=== PATIENT | female | born 1995 | race Caucasian/White ===

== ENCOUNTER → 2016-11-27 | Outpatient (CLI) | payer BC ==
[2016-11-28 12:48] LABS: NEISSERIA GONORRHEA DNA URINE Negative (Negative)
[2016-11-28 16:54] LABS: CHLAMYDIA DNA URINE Negative (Negative)
== END ==
LOC: LAB 13:19
PROVIDERS: ATTEND Family Medicine
DX: N89.8 Other specified noninflammatory disorders of vagina (principal)
CPT/HCPCS: 36415; 87491; 87591

== ENCOUNTER → 2017-04-14 | Outpatient (CLI) | payer BC ==
--- NOTE | 2017-04-14 16:34 | Diagnostic Imaging Report ---
INDICATION: Cough and shortness of breath. COMPARISON: None. FINDINGS: Two 2 views of the chest are obtained. Heart size is normal. The pulmonary vessels appear unremarkable. There is no pneumothorax, mediastinal widening or pleural fluid demonstrated. The lungs are clear. The osseous structures appear unremarkable. IMPRESSION: Negative chest. Dictated by: Dictated on workstation # [id number]
== END ==
LOC: RAD 16:09
PROVIDERS: ATTEND Nurse Practitioner Family
DX: R05 Cough (principal); R06.02 Shortness of breath
CPT/HCPCS: 71020

== ENCOUNTER 2018-03-21 21:12 | Emergency (ER) | payer BC ==
[~2018-03-21] VITALS: Ht 160 cm; Wt 56.7 kg
--- NOTE | 2018-03-21 22:06 | ED Upper Extremity ---
General Stated Complaint: LEFT HAND FINGERNAIL INJURY Source: patient Exam Limitations: no limitations History of Present Illness Date Seen by Provider: Mar 21, 2018 Time Seen by Provider: 22:00 Initial Comments Patient is a 23-year-old female who presents to the emergency room with complaints of catching her left fourth finger and pulling the nail back. She has approximately [address]. Her nail bed remains intact. No bleeding noted. Onset: just prior to arrival Severity: mild Pain/Injury Location: left 4th finger Modifying Factors: Improves With Movement Allergies and Home Medications Patient Home Medication List Home Medication List Reviewed: Yes Constitutional: see HPI; No chills, No fever Skin: see HPI, change in hair/nails All Other Systems Reviewed Negative Unless Noted: Yes Past Tzkpcjf-Nunsgo-Sptcru Hx Past Med/Social Hx: Reviewed Nursing Past Med/Soc Hx Family Medical History Reviewed Nursing Family Hx Physical Exam Vital Signs Capillary Refill : Height, Weight, BMI Height: '" Weight: lbs. oz. kg; BMI Method: General Appearance: WD/WN, no apparent distress Hand: Left, nail injury (left fourth finger nail injury.) Departure Impression Primary Impression: Injury to fingernail of left hand Disposition: HOME, SELF-CARE Condition: Stable/Unchanged Departure-Patient Inst. Decision time for Depature: 22:05 Referrals: RENAE MERRITT MD (PCP/Family) Primary Care Physician Patient Instructions: Common Finger Injuries Add. Discharge Instructions: Wear the splint/guard as needed for comfort. You may take ibuprofen and Tylenol as directed by the bottle for pain. Watch for signs of infection. Return back to the emergency room for any worsening symptoms or concerns as needed. Follow up with your doctor within 1 week for recheck. DAVID ALBERTS Mar 21, 2018 22:06
[2018-03-21 23:32] VITALS: BP 110/70
== END 2018-03-21 23:35 | disposition home or self-care (01) ==
LOC: EDUNIT# 21:12 → ER 21:13
DX: S69.92XA Unspecified injury of left wrist, hand and finger(s), initial encounter (principal); X50.0XXA Overexertion from strenuous movement or load, initial encounter
CPT/HCPCS: 99282

== ENCOUNTER 2019-02-19 01:07 | Emergency (ER) | payer BC ==
[~2019-02-19] VITALS: Ht 165.1 cm; Wt 54.4 kg
[2019-02-19] MEDS ORDERED: LACTATED RINGERS 1,000 ML IV ONE ×2 (01:44→01:46)
[2019-02-19] MEDS ORDERED: LORazepam INJ 2 MG/ML (ATIVAN) VIAL ONE (01:45)
[2019-02-19] MEDS ORDERED: ONDANSETRON 4 MG/2 ML (SDV) Z0FRAN IVP ONE ×2 (02:00→03:30)
[2019-02-19] MEDS ORDERED: LORazepam INJ 2 MG/ML (ATIVAN) VIAL IVP ONE (02:00)
[2019-02-19 02:16] LABS: BASOPHILS % (AUTO) 0 % (0-10); EOSINOPHILS % (AUTO) 0 % (0-10); HEMATOCRIT 42 % (35-52); HEMOGLOBIN 15.1 G/DL (11.5-16.0); LYMPHOCYTES # (AUTO) 2.2 X 10^3 (1.0-4.0); LYMPHOCYTES % (AUTO) 16 % (12-44); MEAN CORPUSCULAR HEMOGLOBIN 31 PG (25-34); MEAN CORPUSCULAR HGB CONC 36 G/DL (32-36); MEAN CORPUSCULAR VOLUME 86 FL (80-99); MEAN PLATELET VOLUME 11.1 FL (7.4-10.4); MONOCYTES % (AUTO) 8 % (0-12); NEUTROPHILS # (AUTO) 10.4 X 10^3 (1.8-7.8); NEUTROPHILS % (AUTO) 76 % (42-75); PLATELET COUNT 393 10^3/uL (130-400); RED CELL DISTRIBUTION WIDTH 11.9 % (10.0-14.5); WHITE BLOOD COUNT 13.6 10^3/uL (4.3-11.0)
[2019-02-19 02:28] LABS: PROTHROMBIN TIME PATIENT 13.8 SEC (12.2-14.7)
[2019-02-19 02:29] LABS: BILIRUBIN,URINE NEGATIVE (NEGATIVE); CLARITY,URINE CLEAR; COLOR,URINE YELLOW; GLUCOSE, URINE (UA) NEGATIVE (NEGATIVE); KETONES,URINE 2+ (NEGATIVE); LEUKOCYTE ESTERASE ,URINE 1+ (NEGATIVE); NITRITE,URINE NEGATIVE (NEGATIVE); PH,URINE 7 (5-9); PROTEIN,URINE NEGATIVE (NEGATIVE); UROBILINOGEN,URINE NORMAL (NORMAL)
[2019-02-19 02:37] LABS: ALANINE AMINOTRANSFERASE 10 U/L (0-55); ALKALINE PHOSPHATASE 69 U/L (40-136); BUN/CREATININE RATIO 9; CALCIUM 10.4 MG/DL (8.5-10.1); CARBON DIOXIDE 16 MMOL/L (21-32); CHLORIDE 107 MMOL/L (98-107); CREATININE SERUM 0.87 MG/DL (0.60-1.30); GFR ESTIMATED > 60; GLUCOSE 101 MG/DL (70-105); MAGNESIUM 2.4 MG/DL (1.8-2.4); POTASSIUM 2.7 MMOL/L (3.6-5.0); SODIUM 140 MMOL/L (135-145); TOTAL PROTEIN 7.1 GM/DL (6.4-8.2)
--- NOTE | 2019-02-19 02:40 | NUR ---
NICOLE BLANDON (ADJUNCT LECTURER)-PT DID NOT WANT TO PUT NECKLACE BACK ON, BUT WANTED TO HOLD IN HER HAND AFTER pCXR.
[2019-02-19 02:41] LABS: AMPHETAMINE SCREEN, URINE NEGATIVE (NEGATIVE); BACTERIA,URINE TRACE /HPF; BARBITURATE SCREEN URINE NEGATIVE (NEGATIVE); BENZODIAZEPINES SCREEN URINE NEGATIVE (NEGATIVE); CANNABINOID SCREEN, URINE POSITIVE (NEGATIVE); COCAINE SCREEN URINE NEGATIVE (NEGATIVE); METHADONE STAT NEGATIVE (NEGATIVE); METHAMPHETAMINE SCREEN URINE S NEGATIVE (NEGATIVE); OPIATE SCREEN URINE NEGATIVE (NEGATIVE); OXYCODONE STAT NEGATIVE (NEGATIVE); PROPOXYPHENE STAT NEGATIVE (NEGATIVE); SQUAMOUS EPITHELIAL CELL,UR 0-2 /HPF; TRICYCLIC ANTIDEPRESSANTS SCRE NEGATIVE (NEGATIVE); WBC,URINE 0-2 /HPF
[2019-02-19] MEDS ORDERED: NS IV 500 ML 500 ML IV ONE ×2 (02:52→03:45)
[2019-02-19] MEDS ORDERED: POTASSIUM CL 10MEQ/50ML IVPB 50 ML IV ONE ×2 (03:00)
[2019-02-19] MEDS ORDERED: KCL 10 MEQ TAB (MICRO K) PO ONE (03:15)
--- NOTE | 2019-02-19 04:01 | ED General ---
General Chief Complaint: Respiratory Problems Stated Complaint: SOB,CP,CLAMMY Nursing Triage Note: AMBULATORY TO ED ROOM 3 WITH S/O BY HER SIDE, S/O STATES, "WE'VE BEENING TRYING TO FIND A PULSE ON HER AND CAN'T". PT STATES SHES BEEN SOA FOR 3 DAYS INTERMITTENTLY, ALSO WITH NAUSEA AND DIARRHEA. STATES SHE WAS SEEN AT [facility] AND TOLD HER SHE WAS FINE AND TO "LEAVE HER BOYFRIEND, BUT KEEP THE DOG". PT NOTED TO BE HYPERVENTILATING AND VERY ANXIOUS DURING TRIAGE. S/O PRESENTED TO ED REGISTRATION DESK REPEATEDLY PRIOR TO TRIAGE STATING SHE WASN'T BREATHING AND REPEATEDLY CHECKING HEART RATE. PT WAS SEEN TALKING AND WALKING AROUND IN WAITING ROOM BY DEBEADER. Nursing Sepsis Screen: No Definite Risk Source of Information: Patient Exam Limitations: No Limitations History of Present Illness Date Seen by Provider: Feb 19, 2019 Time Seen by Provider: 01:40 Initial Comments This 23-year-old woman presents to the emergency room crying and hysterical. She is hyperventilating. She complains of nausea and increased bowel movements 3 days. She is having trouble keeping in food and fluids. She has been feeling very anxious since midnight. She admits to using marijuana and draping. She feels like she cannot breathe. She is satting at 100 percent on room air. Allergies and Home Medications Allergies Coded Allergies: oxcarbazepine (Unverified Adverse Reaction, Unknown, 02/19/19) Home Medications Ondansetron 4 Mg Tab.rapdis, 4 MG SL Q4H PRN for NAUSEA/VOMITING Prescribed by: SATHISH GALEANO on 02/19/19 0404 Patient Home Medication List Home Medication List Reviewed: Yes Review of Systems Review of Systems Constitutional: no symptoms reported EENTM: no symptoms reported Respiratory: see HPI Cardiovascular: no symptoms reported Gastrointestinal: see HPI Genitourinary: no symptoms reported : No Musculoskeletal: no symptoms reported Skin: no symptoms reported Psychiatric/Neurological: See HPI Hematologic/Lymphatic: No Symptoms Reported Immunological/Allergic: no symptoms reported Past Fkzxojy-Esukzn-Isiekx Hx Past Med/Social Hx: Reviewed Nursing Past Med/Soc Hx Patient Social History Alcohol Use: Denies Use Recreational Drug Use: Yes Drug of Choice: MARIJUANA DAILY Type Used: Electronic/Vapor Recent Foreign Travel: No Contact w/Someone Who Travel: No Recent Infectious Disease Expo: No Recent Hopitalizations: No Physical Abuse: No Sexual Abuse: No Mistreated: No Fear: No Seasonal Allergies Seasonal Allergies: No Past Medical History Surgeries: Yes (HERNIA) Appendectomy Respiratory: No Cardiac: No Neurological: No Genitourinary: No Gastrointestinal: Yes (GASTROPARESIS) Musculoskeletal: No Endocrine: No HEENT: No Cancer: No Psychosocial: No Blood Disorders: No Physical Exam Vital Signs Vital Signs - First Documented 02/19/19 02/19/19 01:40 04:20 Temp 98.9 Pulse 84 Resp 54 B/P (MAP) 112/70 (84) Pulse Ox 100 Capillary Refill : Less Than 3 Seconds Height, Weight, BMI Height: 5'5.00" Weight: 120lbs. oz. 54.229374fn; BMI Method:Stated General Appearance: WD/WN, Anxious, Moderate Distress HEENT: PERRL/EOMI, TMs Normal, Normal ENT Inspection, Pharynx Normal Neck: Normal Inspection Respiratory: Lungs Clear, Normal Breath Sounds, No Accessory Muscle Use, No Respiratory Distress, Other (Relating) Cardiovascular: Regular Rate, Rhythm, No Edema, No Murmur Gastrointestinal: Normal Bowel Sounds, Non Tender, Soft Extremity: Normal Inspection, No Pedal Edema Neurologic/Psychiatric: Alert, Oriented x3, No Motor/Sensory Deficits, mainspring winder and oiler II- XII Norm as Tested, Other (Very anxious, hyperventilating, tearful) Skin: Normal Color, Warm/Dry Progress/Results/Core Measures Suspected Sepsis Recent Fever Within 48 Hours: No Infection Criteria Present: None New/Unexplained Altered Menta: No Sepsis Screen: No Definite Risk SIRS Temperature:98.9 Pulse: 84 Respiratory Rate: 54 Blood Pressure 112 /70 Mean: 84 Results/Orders Lab Results My Orders Medications Given in ED Vital Signs/I&O Capillary Refill : Less Than 3 Seconds Blood Pressure Mean: 84 Progress Note : Progress Note Patient was given Ativan which resolved her hyperventilation. She was hydrated with a liter of LR and treated with Zofran. She was found to be significantly hypokalemic. Potassium was replaced, first IV route and then orally. Patient felt much better and was dismissed home with reassurance. ECG Initial ECG Impression Date: Feb 19, 2019 Initial ECG Impression Time: 02:10 Initial ECG Rate: 54 Initial ECG Rhythm: Normal Sinus Initial ECG Intervals: Normal Initial ECG Impression: Normal Comment Normal sinus rhythm with no ST elevation or depression. No abnormal intervals or axis deviation. Diagnostic Imaging Diagonstic Imaging: Xray Plain Films/CT/US/NM/MRI: chest Comments Chest x-ray viewed by me and report not yet available. No acute abnormalities appreciated. Departure Impression Primary Impression: Nausea vomiting and diarrhea Additional Impressions: Hypokalemia Hyperventilation Disposition: 01 HOME, SELF-CARE Condition: Improved Departure-Patient Inst. Referrals: [facility] (PCP/Family) Primary Care Physician Patient Instructions: Hyperventilation, Hypokalemia (DC) Add. Discharge Instructions: Start with a clear liquid diet and drink plenty of clear liquids. Gradually advance your diet with small quantities of bland food as tolerated. Avoid milk products for at least 48 hours after your symptoms resolve. Use Zofran (ondansetron) as prescribed for nausea and vomiting. Return to care if you have worsening symptoms. All discharge instructions reviewed with patient and/or family. Voiced understanding. Scripts Ondansetron (Ondansetron Odt) 4 Mg Tab.rapdis 4 MG SL Q4H PRN for NAUSEA/VOMITING, #10 TAB Prov: SATHISH DAWSON MD 02/19/19 SATHISH DAWSON MD Feb 19, 2019 04:01
[2019-02-19] MEDS ORDERED: ONDA4TAB11 SL (04:04)
[2019-02-19 04:20] VITALS: BP 99/59
--- NOTE | 2019-02-19 07:26 | Diagnostic Imaging Report ---
INDICATION: Shortness of breath, cough and congestion. Comparison made with prior examination 04/14/2017. FINDINGS: The heart size, mediastinal configuration, and pulmonary vascularity are within normal limits. There is no pleural effusion, pneumothorax, or pneumonia. The osseous structures are unremarkable. IMPRESSION: No acute cardiopulmonary abnormality. Dictated by: Dictated on workstation # [id number]
== END 2019-02-19 04:21 | disposition home or self-care (01) ==
LOC: EDUNIT# 01:07 → ER 01:09
DX: E87.6 Hypokalemia (principal); R06.4 Hyperventilation; R11.2 Nausea with vomiting, unspecified; R19.7 Diarrhea, unspecified; K31.84 Gastroparesis; F12.10 Cannabis abuse, uncomplicated; Z90.49 Acquired absence of other specified parts of digestive tract; Z88.8 Allergy status to other drugs, medicaments and biological substances; Z98.890 Other specified postprocedural states
CPT/HCPCS: 36415; 71045; 80053; 80306; 80320; 81000; 83735; 83874; 84484; 84703; 85025; 85610; 85730; 93005; 93041; 96361; 96365; 96375

== ENCOUNTER 2020-09-22 11:41 | Emergency (ER) | payer BC, OTHER ==
[~2020-09-22] VITALS: Ht 165.1 cm; Wt 54.5 kg
[~2020-09-22 11:41] MED LIST: ONDA4TAB11 SL
[2020-09-22] MEDS ORDERED: ONDANSETRON 4 MG/2 ML (SDV) Z0FRAN IVP ONE (12:00)
[2020-09-22] MEDS ORDERED: FAMOTIDINE 20MG/2ML IV (PEPCID) IVP ONE (12:00)
[2020-09-22] MEDS ORDERED: LACTATED RINGERS 1,000 ML IV ONE (12:00)
--- NOTE | 2020-09-22 12:16 | ED Abdominal Pain ---
General Chief Complaint: Abdominal/GI Problems Stated Complaint: VOMITING;NAUSEA Source of Information: Patient Exam Limitations: No Limitations (MARCELL SAMPSON) History of Present Illness Date Seen by Provider: Sep 22, 2020 Time Seen by Provider: 12:06 Initial Comments Laura is a 25 y/o female who accompanied by her boyfriend that present with nausea and vomiting since last night. She was out drinking last night and remembers having at least 6-10 mixed drinks in addition to beer. She has associated diarrhea and abdominal pain. Nothing has helped make it better and drinking fluids has made it worse. She denies blood in vomit or stool. Denies knowing anyone else with similar symptoms. LMP was a couple of weeks ago, patient has been sexually active since. Patient does have vaginal discharge but cannot describe it. Denies F/C, Chest pain, SOB, dysuria and constipation at this time. PMH includes Anxiety. She was not able to take medications today. Denies PMH of pathology. Timing/Duration: 1 Day Severity/Quality: Severe Location: Generalized Abdomen Radiation: RLQ, LLQ Activities at Onset: Other (alcohol use ) Associated Symptoms: Fatigue, Nausea/Vomiting, Weakness (MARCELL SAMPSON) Allergies and Home Medications Allergies Coded Allergies: oxcarbazepine (Unverified Adverse Reaction, Unknown, 02/19/19) Home Medications Ondansetron 4 Mg Tab.rapdis, 4 MG SL Q4H PRN for NAUSEA/VOMITING Prescribed by: SATHISH GALEANO on 02/19/19 0404 Ondansetron 4 Mg Tab.rapdis, 4 MG SL Q4H PRN for NAUSEA/VOMITING Prescribed by: SATHISH GALEANO on 09/22/20 1442 Patient Home Medication List Home Medication List Reviewed: Yes (SATHISH DAWSON MD) Review of Systems Review of Systems Constitutional: see HPI EENTM: No Symptoms Reported Respiratory: No Symptoms Reported Cardiovascular: No Symptoms Reported Gastrointestinal: Diarrhea, Nausea; Denies Rectal Bleeding; Vomiting Genitourinary: No Symptoms Reported Musculoskeletal: no symptoms reported Skin: no symptoms reported Psychiatric/Neurological: Anxiety Endocrine: No Symptoms Reported Hematologic/Lymphatic: No Symptoms Reported (MARCELL SAMPSON) Past Wruvrtt-Ynwyds-Ogwqjr Hx Patient Social History Drug of Choice: MARIJUANA DAILY Type Used: Electronic/Vapor Recent Hopitalizations: No (CAMILLA,MARCELL MED STUDEN) Seasonal Allergies Seasonal Allergies: No (CAMILLA,MARCELL MED STUDEN) Past Medical History Surgeries: Yes (HERNIA) Appendectomy Respiratory: No Cardiac: No Neurological: No Genitourinary: No Gastrointestinal: Yes (GASTROPARESIS) Musculoskeletal: No Endocrine: No HEENT: No Cancer: No Psychosocial: No Blood Disorders: No (CAMILLA,MARCELL MED STUDEN) Physical Exam Vital Signs Vital Signs - First Documented 09/22/20 11:47 Temp 36.3 Pulse 87 Resp 18 B/P (MAP) 113/84 (94) Pulse Ox 100 O2 Delivery Room Air (SATHISH DAWSON MD) Vital Signs Capillary Refill : (CAMILLA,MARCELL MED STUDEN) Height/Weight/BMI Height: 5'5.00" Weight: 120lbs. oz. 54.722449ut; BMI Method:Stated General Appearance: severe distress, thin HEENT: PERRL/EOMI Neck: non-tender, full range of motion Respiratory: chest non-tender, lungs clear, no respiratory distress, no accessory muscle use Cardiovascular: normal peripheral pulses, regular rate, rhythm, no edema Peripheral Pulses: 2+ Radial Pulses (R), 2+ Radial Pulses (L) Gastrointestinal: tenderness (Diffuse with radiation LLQ and RLQ) Extremities: no pedal edema, no calf tenderness Neurologic/Psychiatric: alert, normal mood/affect, oriented x 3 Skin: normal color (CAMILLA,MARCELL MED STUDEN) Progress/Results/Core Measures Results/Orders Lab Results Laboratory Tests Test 09/22/20 12:18 Range/Units White Blood Count 17.3 H 4.3-11.0 10^3/uL Red Blood Count 4.76 3.80-5.11 10^6/uL Hemoglobin 14.9 11.5-16.0 g/dL Hematocrit 43 35-52 % Mean Corpuscular Volume 89 80-99 fL Mean Corpuscular Hemoglobin 31 25-34 pg Mean Corpuscular Hemoglobin Concent 35 32-36 g/dL Red Cell Distribution Width 11.7 10.0-14.5 % Platelet Count 372 130-400 10^3/uL Mean Platelet Volume 10.9 9.0-12.2 fL Immature Granulocyte % (Auto) 0 % Neutrophils (%) (Auto) 90 H 42-75 % Lymphocytes (%) (Auto) 6 L 12-44 % Monocytes (%) (Auto) 3 0-12 % Eosinophils (%) (Auto) 0 0-10 % Basophils (%) (Auto) 0 0-10 % Neutrophils # (Auto) 15.6 H 1.8-7.8 10^3/uL Lymphocytes # (Auto) 1.0 1.0-4.0 10^3/uL Monocytes # (Auto) 0.6 0.0-1.0 10^3/uL Eosinophils # (Auto) 0.0 0.0-0.3 10^3/uL Basophils # (Auto) 0.0 0.0-0.1 10^3/uL Immature Granulocyte # (Auto) 0.1 0.0-0.1 10^3/uL Neutrophils % (Manual) 91 % Lymphocytes % (Manual) 9 % Blood Morphology Comment NORMAL Sodium Level 141 135-145 MMOL/L Potassium Level 4.1 3.6-5.0 MMOL/L Chloride Level 106 98-107 MMOL/L Carbon Dioxide Level 18 L 21-32 MMOL/L Anion Gap 17 H 5-14 MMOL/L Blood Urea Nitrogen 16 7-18 MG/DL Creatinine 0.82 0.60-1.30 MG/DL Estimat Glomerular Filtration Rate > 60 BUN/Creatinine Ratio 20 Glucose Level 120 H 70-105 MG/DL Calcium Level 9.6 8.5-10.1 MG/DL Corrected Calcium 8.5-10.1 MG/DL Total Bilirubin 0.6 0.1-1.0 MG/DL Aspartate Amino Transf (AST/SGOT) 28 5-34 U/L Alanine Aminotransferase (ALT/SGPT) 36 0-55 U/L Alkaline Phosphatase 56 40-136 U/L C-Reactive Protein High Sensitivity 0.09 0.00-0.50 MG/DL Total Protein 7.4 6.4-8.2 GM/DL Albumin 4.9 H 3.2-4.5 GM/DL Lipase 9 8-78 U/L Serum Test, Qualitative NEGATIVE NEGATIVE (SATHISH DAWSON MD) My Orders Orders - SATHISH DAWSON MD Ed Iv/Invasive Line Start (09/22/20 11:51) Famotidine Injection (Pepcid Injection) (09/22/20 12:00) Ondansetron Injection (Zofran Injectio (09/22/20 12:00) Cbc With Automated Diff (09/22/20 11:53) Comprehensive Metabolic Panel (09/22/20 11:53) Hcg,Qualitative Serum (09/22/20 11:53) Lactated Ringers (Lr 1000 Ml Iv Solution (09/22/20 12:00) Lipase (09/22/20 12:02) Promethazine Injection (Phenergan Injec (09/22/20 12:30) Manual Differential (09/22/20 12:18) Ua Culture If Indicated (09/22/20 12:42) Hs C Reactive Protein (09/22/20 12:42) Ns Iv 500 Ml (Sodium Chloride 0.9%) (09/22/20 13:45) (SATHISH DAWSON MD) Medications Given in ED Current Medications Medications Dose Ordered Sig/Brandon Route Start Time Stop Time Status Last Admin Dose Admin Famotidine 20 mg ONCE ONCE IVP 09/22/20 12:00 09/22/20 12:01 DC 09/22/20 12:11 20 MG Lactated Ringer's 1,000 ml @ 0 mls/hr Q0M ONCE IV 09/22/20 12:00 09/22/20 12:01 DC 09/22/20 12:12 1,000 MLS/HR Ondansetron HCl 8 mg ONCE ONCE IVP 09/22/20 12:00 09/22/20 12:01 DC 09/22/20 12:11 8 MG Promethazine HCl 25 mg ONCE ONCE IVP 09/22/20 12:30 09/22/20 12:31 DC 09/22/20 12:35 25 MG Sodium Chloride 500 ml @ 0 mls/hr Q0M ONCE IV 09/22/20 13:45 09/22/20 13:46 DC 09/22/20 13:48 500 MLS/HR (SATHISH DAWSON MD) Vital Signs/I&O 09/22/20 11:47 Temp 36.3 Pulse 87 Resp 18 B/P (MAP) 113/84 (94) Pulse Ox 100 O2 Delivery Room Air (SATHISH DAWSON MD) Progress Progress Note : Time: 12:18 Progress Note Started IV, ordered fluids, CBC, CMP, Lactate, B-HCG to start. Ordered Pepcid and Zofran. (MARCELL SAMPSON) Departure Impression Primary Impression: Nausea vomiting and diarrhea Disposition: 01 HOME, SELF-CARE Condition: Improved Departure-Patient Inst. Decision time for Depature: 14:41 (SATHISH DAWSON MD) Referrals: [facility] (PCP/Family) Primary Care Physician Patient Instructions: Nausea and Vomiting, Adult (DC) Add. Discharge Instructions: Start with a clear liquid diet and gradually advance your diet with small quantities of bland food as tolerated. Use Zofran as prescribed for nausea and vomiting. Return to the emergency room if you have worsening symptoms. Call with questions or concerns. All discharge instructions reviewed with patient and/or family. Voiced understanding. Scripts Ondansetron (Ondansetron Odt) 4 Mg Tab.rapdis 4 MG SL Q4H PRN for NAUSEA/VOMITING, #10 TAB Prov: SATHISH DAWSON MD 09/22/20 Medical Student Attestation and Attending Note: I have personally interviewed and examined this patient along with Marcell Sampson, MS 4. I have reviewed student documentation including history, physical, and assessments. I agree with the documentation except where otherwise noted. Exam: General: Alert, oriented, mild acute distress, well developed, thin HEENT: Normocephalic and atraumatic, mucous membranes pasty Heart: Regular rate and rhythm without murmur Lungs: Clear to auscultation bilaterally with normal effort Abdomen: Soft, mild generalized tenderness, nondistended, decreased bowel sounds Neuropsych: Alert, oriented, no focal deficits Skin: Warm and dry without rashes Patient was treated with a liter of LR, Pepcid, and Zofran. She had refractory nausea and vomiting. This treatment was followed with Phenergan and an additional 500 mL bolus of normal saline. After period of rest she was ready to go home. (SATHISH DAWSON MD) MARCELL SAMPSON Sep 22, 2020 12:15 SATHISH DAWSON MD Sep 22, 2020 14:45
[2020-09-22 12:24] LABS: BASOPHILS % (AUTO) 0 % (0-10); EOSINOPHILS % (AUTO) 0 % (0-10); HEMATOCRIT 43 % (35-52); HEMOGLOBIN 14.9 g/dL (11.5-16.0); LYMPHOCYTES % (AUTO) 6 % (12-44); MEAN CORPUSCULAR HEMOGLOBIN 31 pg (25-34); MEAN CORPUSCULAR HGB CONC 35 g/dL (32-36); MEAN CORPUSCULAR VOLUME 89 fL (80-99); MEAN PLATELET VOLUME 10.9 fL (9.0-12.2); MONOCYTES # (AUTO) 0.6 10^3/uL (0.0-1.0); MONOCYTES % (AUTO) 3 % (0-12); NEUTROPHILS # (AUTO) 15.6 10^3/uL (1.8-7.8); NEUTROPHILS % (AUTO) 90 % (42-75); PLATELET COUNT 372 10^3/uL (130-400); WHITE BLOOD COUNT 17.3 10^3/uL (4.3-11.0)
[2020-09-22] MEDS ORDERED: PROMETHAZINE INJ 25 MG/ML (PHENERGAN) AMP IVP ONE (12:30)
[2020-09-22 12:45] LABS: ALBUMIN 4.9 GM/DL (3.2-4.5); CHLORIDE 106 MMOL/L (98-107); POTASSIUM 4.1 MMOL/L (3.6-5.0); SODIUM 141 MMOL/L (135-145)
[2020-09-22 12:46] LABS: CALCIUM 9.6 MG/DL (8.5-10.1)
[2020-09-22 12:47] LABS: GLUCOSE 120 MG/DL (70-105); TOTAL PROTEIN 7.4 GM/DL (6.4-8.2)
[2020-09-22 12:48] LABS: CARBON DIOXIDE 18 MMOL/L (21-32)
[2020-09-22 12:49] LABS: BILIRUBIN,TOTAL 0.6 MG/DL (0.1-1.0)
[2020-09-22 12:51] LABS: ALKALINE PHOSPHATASE 56 U/L (40-136); CREATININE SERUM 0.82 MG/DL (0.60-1.30); GFR ESTIMATED > 60
[2020-09-22 12:52] LABS: BUN/CREATININE RATIO 20
[2020-09-22 12:54] LABS: ALANINE AMINOTRANSFERASE 36 U/L (0-55); LIPASE 9 U/L (8-78)
[2020-09-22 13:14] LABS: LYMPHOCYTES % (MANUAL) 9 %; NEUTROPHILS % (MANUAL) 91 %; RBC MORPH NORMAL
[2020-09-22] MEDS ORDERED: NS IV 500 ML 500 ML IV ONE (13:45)
[2020-09-22] MEDS ORDERED: ONDA4TAB11 SL (14:42)
[2020-09-22 15:04] VITALS: BP 103/58
== END 2020-09-22 15:04 | disposition home or self-care (01) ==
LOC: EDUNIT# 11:41 → ER 11:42
DX: R11.2 Nausea with vomiting, unspecified (principal); R19.7 Diarrhea, unspecified; F41.9 Anxiety disorder, unspecified; Z88.8 Allergy status to other drugs, medicaments and biological substances
CPT/HCPCS: 36415; 80053; 83690; 84703; 85007; 85027; 86141